=== PATIENT | female | born 1960 | race Caucasian/White ===

== ENCOUNTER 2016-11-08 19:39 | Emergency (ER) | payer OTHER ==
[~2016-11-08] VITALS: Ht 165.1 cm; Wt 90.7 kg
[~2016-11-08 19:39] MED LIST: ALBU8.5H2 IH; ALEN70TA45 PO; AMLO10TA2 PO; ASPI-605 PO; BECL8.7A5 IH; BENA1TAB18 PO; LORA0.5T PO; OMEP20CA10 PO; PARO20TA51 PO; PRAV40TA3 PO
[2016-11-08 19:48] VITALS: BP 158/80
[2016-11-08] MEDS ORDERED: HYDROCODONE/APAP 5/325MG 1 EACH TABLET ONE (20:36)
[2016-11-08] MEDS ORDERED: HYDROCODONE/APAP 5/325MG 1 EACH TABLET PO ONE (21:00)
== END 2016-11-08 20:49 | disposition home or self-care (01) ==
LOC: ER 19:39
DX: K64.4 Residual hemorrhoidal skin tags (principal); F41.9 Anxiety disorder, unspecified; I10 Essential (primary) hypertension; J45.909 Unspecified asthma, uncomplicated; K21.9 Gastro-esophageal reflux disease without esophagitis; Z79.82 Long term (current) use of aspirin; Z88.0 Allergy status to penicillin
CPT/HCPCS: 99283; A4606; Z7610

== ENCOUNTER 2021-08-29 15:06 | Emergency (ER) | payer OTHER ==
[~2021-08-29] VITALS: Ht 167.6 cm; Wt 95.3 kg
[~2021-08-29 15:06] MED LIST changes: -ALBU8.5H2 IH; +ALBU8.5H8 IH; -ALEN70TA45 PO; +ALEN70TA80 PO; +AMLO-213 PO; -AMLO10TA2 PO; -OMEP20CA10 PO; +OMEP20CA15 PO; +PARO-64 PO; -PARO20TA51 PO
--- NOTE | 2021-08-29 15:32 | NUR ---
SEEN AND EXAMINED BY .
[2021-08-29] MEDS ORDERED: KETOROLAC TROMETHAMINE INJ 60 MG/2 ML VIAL IM ONE ×2 (15:41→16:00)
--- NOTE | 2021-08-29 15:50 | NUR ---
PT IS WHEELED TO CT SCAN VIA [facility].
--- NOTE | 2021-08-29 15:51 | NUR ---
THE PATIENT IS TAKEN TO CT VIA GURNEY.
--- NOTE | 2021-08-29 16:03 | NUR ---
THE PATIENT IS BACK FROM CT VIA [facility]
[2021-08-29] MEDS ORDERED: ACET-907 PO (17:02)
[2021-08-29] MEDS ORDERED: PRED50TA PO (17:02)
[2021-08-29 17:15] VITALS: BP 141/82
--- NOTE | 2021-08-29 17:15 | NUR ---
Patient discharged to home in stable condition. Written and verbal after care instructions given. Patient verbalizes understanding of instruction.
== END 2021-08-29 17:15 | disposition home or self-care (01) ==
LOC: ER 15:08
DX: M54.12 Radiculopathy, cervical region (principal); M54.42 Lumbago with sciatica, left side; I10 Essential (primary) hypertension; J45.909 Unspecified asthma, uncomplicated; K21.9 Gastro-esophageal reflux disease without esophagitis; F41.9 Anxiety disorder, unspecified; Z88.0 Allergy status to penicillin; Z79.899 Other long term (current) drug therapy
CPT/HCPCS: 72125; 72131; 96372; 99284; J1885